=== PATIENT | female | born 1960 | race African-American/Black ===

== ENCOUNTER 2025-04-16 01:51 | Emergency (ER) | payer BC, OTHER ==
[~2025-04-16] VITALS: Ht 165.1 cm; Wt 60.0 kg
[~2025-04-16 01:51] MED LIST: ATENOLOL; HCTZ; LISINOPRIL; VIREAD; ZETIA
[2025-04-16 01:53] VITALS: BP 136/82; PULSE 90; RESP 14; TEMP 37; O2SAT 100
== END 2025-04-16 04:59 | disposition home or self-care (01) ==
LOC: ER 01:51
DX: S43.409A Unspecified sprain of unspecified shoulder joint, initial encounter (principal); S20.211A Contusion of right front wall of thorax, initial encounter; I10 Essential (primary) hypertension; W19.XXXA Unspecified fall, initial encounter; Y93.89 Activity, other specified; Y92.89 Other specified places as the place of occurrence of the external cause; Y99.8 Other external cause status
CPT/HCPCS: 71045; 73030; 99284